=== PATIENT | male | born 1950 | race Caucasian/White ===

== ENCOUNTER 2018-08-03 11:44 | Day surgery (SDC) | payer BC ==
[2018-08-03] MEDS ORDERED: LIDOCAINE 1% PF 2 ML VIAL. ID PRN ×2 (12:00→15:30)
[2018-08-03] MEDS ORDERED: MIDAZOLAM HCL/PF 2 MG/2 ML VIAL. IV PRN (12:00)
[2018-08-03] MEDS ORDERED: fentaNYL PF VIAL 100 MCG/2 ML VIAL IV PRN ×4 (12:00→15:30)
[2018-08-03] MEDS ORDERED: HYDR12.53 PO (12:09)
[2018-08-03] MEDS ORDERED: FINA5TAB4 PO (12:09)
[2018-08-03] MEDS ORDERED: TAMS0.4C2 PO (12:10)
[2018-08-03] MEDS ORDERED: CRESTOR20 MG PO (12:11)
[2018-08-03] MEDS ORDERED: OLME20TA17 PO (12:12)
[2018-08-03] MEDS: IV RINGERS,LACTATED 1000ML 1,000 ML IV SCH ×3 (12:18→15:30)
[2018-08-03] MEDS ORDERED: LIDOCAINE 2% JELLY 6ML IN APPLICATOR. ONE (12:52)
[2018-08-03] MEDS ORDERED: fentaNYL PF VIAL 100 MCG/2 ML VIAL ONE (13:11)
[2018-08-03] MEDS ORDERED: LIDOCAINE 2% PF Vial for OR 5 ML VIAL. ONE (13:11)
[2018-08-03] MEDS ORDERED: MIDAZOLAM HCL/PF 2 MG/2 ML VIAL. ONE (13:11)
[2018-08-03] MEDS ORDERED: PROPOFOL 20 ML IV ONE (13:11)
[2018-08-03] MEDS ORDERED: CIPROFLOXACIN 400MG PREMIX 200 ML IV ONE (14:00)
[2018-08-03] MEDS ORDERED: DEXAMETHASONE SOD PHOS 20 MG/5 ML VIAL. ONE (15:14)
[2018-08-03] MEDS ORDERED: ONDANSETRON PF 4 MG/2 ML VIAL. ONE (15:14)
[2018-08-03] MEDS ORDERED: SEVOFLURANE 61 TO 120 MINUTES. IH ONE (15:14)
--- NOTE | 2018-08-03 15:25 | PDOC4 ---
OPERATIVE NOTE Date: Date: Aug 03, 2018 Pre-Op Diagnosis: BPH Post-Op Diagnosis: same Procedure Performed: Greenlight laser vaporization of prostate Surgeon: Sridhar Wilson MD Anesthesia Type: general Blood Loss: 5 ml Specimans Obtained: median lobe chip Findings: trilobar prostate enlargement Complications: none Operative Note: see dictation SRIDHAR WILSON MD Aug 03, 2018 15:25
[2018-08-03] MEDS ORDERED: IV RINGERS,LACTATED 1000ML 1,000 ML IV SCH (15:29)
[2018-08-03] MEDS ORDERED: HYDROmorphone 2 MG/ML VIAL IV PRN (15:30)
[2018-08-03] MEDS ORDERED: ONDANSETRON PF 4 MG/2 ML VIAL. IV PRN (15:30)
[2018-08-03] MEDS ORDERED: PROCHLORPERAZINE 10 MG/2 ML VIAL. IV PRN (15:30)
[2018-08-03] MEDS ORDERED: MORPHINE SULFATE 2 MG/ML VIAL. IV PRN (15:30)
--- NOTE | 2018-08-03 15:30 | DISCH ---
DISCHARGE INSTRUCTIONS Condition on Discharge Condition on Discharge: Stable Activity After Discharge Activity Instructions for Disc: Avoid exertion Lifting Instructions after Dis: No heavy lifting Exercise Instruction after Dis: Walk 15 min, 3 x per day Driving Instructions after Dis: Do not drive today Diet after Discharge Diet after Discharge: Regular Wound Incision Care Other wound/incision instructi: Huetra catheter care instructions Contacting the after DC Call your doctor for: Concerns you may have Follow-Up Follow up with: Dr. Wilson 08/07/18 for catheter removal [phone] SRIDHAR WILSON MD Aug 03, 2018 15:30
[2018-08-03] MEDS ORDERED: HYDR-971 PO (15:32)
[2018-08-03] MEDS ORDERED: HYDROcodone/APAP 5/325MG 1 TAB TABLET PO PRN ×2 (16:00)
--- NOTE | 2018-08-03 16:42 | OP ---
DATE OF SURGERY: 08/03/2018 SURGEON: Sridhar Wilson MD CLIENT ASSOCIATE: None. PREOPERATIVE DIAGNOSIS: Benign prostatic hypertrophy. POSTOPERATIVE DIAGNOSIS: Benign prostatic hypertrophy. PROCEDURE PERFORMED: GreenLight laser vaporization of the prostate. ANESTHESIA TYPE: General. INDICATIONS: This is a 68-year-old male with obstructive and enlarged prostate. He has tried medical management and now wants to proceed with GreenLight laser surgery. Informed consent was obtained. DESCRIPTION OF PROCEDURE: The patient was taken to the operating room where general anesthesia was induced. He was placed in the dorsal lithotomy position, sterilely prepped and draped. A timeout was performed. A rigid cystoscope was advanced through the urethra into the bladder. The prostate was noted to be enlarged due to lateral lobe and median lobe enlargement. Both ureteral orifices were identified at safe distance away from the bladder neck. The bladder was mildly trabeculated without other abnormalities. The laser fiber was then introduced through the scope and then the median lobe was vaporized followed by the lateral lobes. A total of 197,000 joules of energy was used. Hemostasis was excellent. There was minor bleeding noted at the end of the procedure, which resolved completely after inflation of a Huerta catheter and traction for 10 minutes. The scope was then reintroduced, and a fragment of the median lobe was identified which was grasped and sent as a specimen. The Huerta catheter was replaced and fluid output was clear. The patient was then awakened and taken to the recovery room in stable condition. BLOOD LOSS: 5 mL. COMPLICATIONS: None. SPECIMEN: Median lobe of prostate chips. CONDITION AT END OF PROCEDURE: Stable. SRIDHAR WILSON MD DR: LILIA/nts JOB#: [id number] / [id number]
[2018-08-03 17:00] VITALS: BP 173/99
--- NOTE | 2018-08-07 16:07 | PATHOLOGY ---
[facility] Accession Number: [id number] . 01 Material submitted: . PROSTATE MEDIAN LOBE . 01 Clinician provided ICD-10: N40.0 . 01 Clinical history: . Prostate stricture . 02 Diagnosis: Prostate "prostate median lobe, biopsy: - Glandular and stromal hyperplasia. . ([facility]:at;08/07/2018) QTA/08/07/2018 . 02 Comment: This case will also be reviewed by another pathologist and if there are any changes an additional report will follow. . ([facility]:at;08/07/2018) . 02 Electronically signed: . Rony Eli MD, Pathologist NPI- [id number] . 01 Gross description: . The specimen is received in formalin, labeled "Padmaja Hwang, prostate median lobe" and consists of a less than 1 g segment of cole tissue measuring 1.5 x 1.0 x 0.5 cm. It is inked black, serially sectioned, and entirely submitted in A1-A2. (SCY; 08/04/2018) SYU/SYU . 02 Microscopic: . . . 02 Pathologist provided ICD-10: N40.0 . 02 CPT . [id number] Specimen Comment: A courtesy copy of this report has been sent to Specimen Comment: [phone]. Specimen Comment: Report sent to Performed at: 01 [facility] [address], [place] [id number] MD Yaw Gutierrez MD Phone: [phone] Performed at: 02 [facility] [address], [place] [id number] MD Roverto Weaver MD Phone: [phone]
== END 2018-08-03 17:31 | disposition home or self-care (01) ==
LOC: SURG 11:44
PROVIDERS: ATTEND Urology
DX: N40.1 Benign prostatic hyperplasia with lower urinary tract symptoms (principal); N13.8 Other obstructive and reflux uropathy; I10 Essential (primary) hypertension; I25.10 Atherosclerotic heart disease of native coronary artery without angina pectoris; E78.00 Pure hypercholesterolemia, unspecified; M15.0 Primary generalized (osteo)arthritis; Z88.6 Allergy status to analgesic agent; Z88.0 Allergy status to penicillin; Z88.8 Allergy status to other drugs, medicaments and biological substances; Z79.899 Other long term (current) drug therapy; Z98.52 Vasectomy status; Z98.890 Other specified postprocedural states; Z83.3 Family history of diabetes mellitus; Z82.49 Family history of ischemic heart disease and other diseases of the circulatory system; Z80.0 Family history of malignant neoplasm of digestive organs; F17.210 Nicotine dependence, cigarettes, uncomplicated; Z72.89 Other problems related to lifestyle
CPT/HCPCS: 52648; 88305; A7015; J0744; J0780; J1100; J2001; J2250; J2405; J2704; J3010; J7120